=== PATIENT | male | born 1945 | race Caucasian/White ===

== ENCOUNTER → 2016-04-19 | Outpatient (CLI) | payer MEDICARE ==
[2015-09-07 13:30] VITALS: BP 139/65
[~2016-04-19] MED LIST: CLIN-44 PO
== END | disposition home or self-care (01) ==
LOC: PCVCIMAG 08:10
PROVIDERS: ATTEND Internal Medicine Cardiovascular Disease
DX: I25.10 Atherosclerotic heart disease of native coronary artery without angina pectoris (principal); I73.9 Peripheral vascular disease, unspecified; I10 Essential (primary) hypertension; E78.00 Pure hypercholesterolemia, unspecified; I25.5 Ischemic cardiomyopathy; J44.9 Chronic obstructive pulmonary disease, unspecified
CPT/HCPCS: 93005; 93306; G0463